=== PATIENT | male | born 1970 | race Two or more races ===

== ENCOUNTER 2022-08-03 14:38 | Emergency (ER) | payer MEDICARE, OTHER ==
[~2022-08-03] VITALS: Ht 170.2 cm; Wt 86.6 kg
[2022-08-03] MEDS ORDERED: OLANZAPINE 5 MG TABLET PO ONE (15:00)
[2022-08-03] MEDS ORDERED: OLANZAPINE 5 MG TABLET ONE (15:09)
[2022-08-03 15:42] LABS: BASOPHILS % (AUTO) 0.2 % (0.0-2.0); HEMATOCRIT 44 % (39-51); HEMOGLOBIN 14.6 g/dL (13.5-17.5); LYMPHOCYTES # (AUTO) 2.2 K/uL (0.8-4.8); MEAN CORPUSCULAR HGB CONC 33 g/dl (31.0-36.0); MEAN CORPUSCULAR VOLUME 85 fL (80-96); MONOCYTES # (AUTO) 0.5 K/uL (0.1-1.30); MONOCYTES % (AUTO) 8.8 % (2.0-12.0); NEUTROPHILS # (AUTO) 2.2 K/uL (1.8-8.9); PLATELET COUNT (AUTO) 232 K/uL (150-450); RED BLOOD CELL COUNT(AUTO) 5.19 MIL/uL (4.5-6.0); WHITE BLOOD COUNT (AUTO) 5.2 K/uL (4.3-11.0)
[2022-08-03 15:45] LABS: BILIRUBIN,URINE NEGATIVE (NEGATIVE); COLOR,URINE YELLOW (YELLOW); LEUKOCYTE ESTERASE ,URINE NEGATIVE (NEGATIVE); NITRITE, URINE NEGATIVE (NEGATIVE); PH,URINE 6.5 (5.0-8.0); PROTEIN,URINE NEGATIVE (NEGATIVE); UGLUCOSE NEGATIVE (NEGATIVE); UROBILINOGEN,URINE 0.2 EU/dL (0.2)
[2022-08-03 15:56] LABS: BACTERIA,URINE None seen /HPF (None Seen); SQUAMOUS EPITHELIAL CELL,UR 0-2 /HPF (None Seen); WBC,URINE 0-2 /HPF (0-3)
[2022-08-03 16:00] LABS: CALCIUM, SERUM 9.3 mg/dL (8.5-10.1); CARBON DIOXIDE 28 mmol/L (21-32); CHLORIDE 105 mmol/L (98-107); GLUCOSE 102 mg/dL (74-106); POTASSIUM 3.9 mmol/L (3.5-5.1); SODIUM SERUM 141 mmol/L (136-145); UREA NITROGEN, BLOOD 16 mg/dL (7-18)
[2022-08-03 16:06] LABS: ALANINE AMINOTRANSFERASE 124 U/L (12-78); ALCOHOL, BLOOD < 3 mg/dL (0-0); ALKALINE PHOSPHATASE 97 U/L (46-116); ASPARTATE AMINOTRANSFERASE 86 U/L (15-37); BILIRUBIN,DIRECT 0.2 mg/dL (0.0-0.2); BILIRUBIN,TOTAL 0.4 mg/dL (0.2-1.0); TOTAL PROTEIN, SERUM 7.9 g/dL (6.4-8.2)
[2022-08-03 16:09] LABS: ACETAMINOPHEN < 10 ug/ml (10-30)
--- NOTE | 2022-08-03 16:20 | NUR ---
Patient AOx4, able to express his concerns. Family at bedside, per pts request. No signs of distress or discomfort.
--- NOTE | 2022-08-03 16:53 | NUR ---
SS NOTE: SW met with pt.'s family at bedside who requested information about Conservatorship. SW provided family with informational packets and provided [employer] tel; [phone]; [phone] for assistance with applying for conservatorship. Family stated they will look into applying.
--- NOTE | 2022-08-03 19:27 | NUR ---
COVID SWAB AND SENT TO LAB
[2022-08-03 19:33] VITALS: BP 118/85
== END 2022-08-03 19:34 | disposition home or self-care (01) ==
LOC: ER 14:59
DX: F20.9 Schizophrenia, unspecified (principal)
CPT/HCPCS: 36415; 80048-TC; 80076-TC; 81001; 85025-TC; C9803; G0480